=== PATIENT | male | born 1950 | race Hispanic/Latino ===

== ENCOUNTER → 2019-08-04 | Outpatient (CLI) | payer OTHER ==
[~2019-08-04] MED LIST: REGADENOSON 0.4 MG/5 ML PF SYG IVP SCH
== END | disposition home or self-care (01) ==
LOC: RAH 08:53
PROVIDERS: ATTEND Internal Medicine Cardiovascular Disease
DX: I25.89 Other forms of chronic ischemic heart disease (principal)
CPT/HCPCS: 78452; 93017; 96374; A9500 ×2; J2785

== ENCOUNTER 2022-07-16 15:12 | Inpatient (IN) | payer OTHER ==
[~2022-07-16] VITALS: Ht 165.1 cm; Wt 79.4 kg
[2022-07-16] MEDS ORDERED: DEXAMETHASONE SOD PHOSPHATE 4 MG/ML 1ML VIAL IM STA (16:20)
[2022-07-16] MEDS ORDERED: KETOROLAC 30MG VIAL (30MG/ML) IM STA (16:23)
[2022-07-16 16:53] LABS: BASOPHILS % (AUTO) 0.4 % (0.0-5.0); HEMATOCRIT 41.9 % (42-54); LYMPHOCYTES % (AUTO) 17.3 % (21.0-51.0); MEAN CORPUSCULAR HEMOGLOBIN 31.3 pg (27.0-33.0); MEAN CORPUSCULAR HGB CONC 34.1 g/dL (32.0-36.0); MEAN CORPUSCULAR VOLUME 91.7 fL (79-99); MONOCYTES % (AUTO) 9.4 % (3.0-13.0); NEUTROPHILS % (AUTO) 71.8 % (40.0-77.0); PLATELET COUNT (AUTO) 180 K/uL (130-400); RED BLOOD CELL COUNT(AUTO) 4.57 MIL/uL (4.50-6.20); RED CELL DISTRIBUTION WIDTH 12.9 % (11.0-15.5)
[2022-07-16 17:07] LABS: CREATININE 1.3 mg/dL (0.5-1.5); POTASSIUM 4.7 mmol/L (3.5-5.1)
[2022-07-16 17:12] LABS: TOTAL PROTEIN, SERUM 8.1 g/dL (6.0-8.3)
[2022-07-16] MEDS: LACTATED RINGERS 1000ML 1,000 ML IV SCH ×4 (18:15→21:30)
[2022-07-17] MEDS ORDERED: GADOTERATE MEGLUMINE 10 MMOL/20 ML VIAL IV ONE (12:04)
[2022-07-17] MEDS ORDERED: LIDOCAINE 5% TOPICAL PATCH TP SCH (18:30)
[2022-07-17] MEDS ORDERED: ONDANSETRON 4MG INJ IV PRN (18:30)
[2022-07-17] MEDS ORDERED: HYDROMORPHONE 0.5 MG SYG (0.5MG/0.5ML) IVP PRN (18:30)
[2022-07-17] MEDS ORDERED: HYDROMORPHONE 1 MG INJ IVP PRN (18:30)
[2022-07-17] MEDS ORDERED: ACETAMINOPHEN 325 MG TAB PO PRN ×2 (18:30)
[2022-07-17 18:55] LABS: BASOPHILS % (AUTO) 0.2 % (0.0-5.0); HEMATOCRIT 36.6 % (42-54); LYMPHOCYTES % (AUTO) 13.6 % (21.0-51.0); MEAN CORPUSCULAR HEMOGLOBIN 31.2 pg (27.0-33.0); MEAN CORPUSCULAR HGB CONC 33.9 g/dL (32.0-36.0); MEAN CORPUSCULAR VOLUME 92.2 fL (79-99); MONOCYTES % (AUTO) 7.5 % (3.0-13.0); NEUTROPHILS % (AUTO) 78.1 % (40.0-77.0); PLATELET COUNT (AUTO) 183 K/uL (130-400); RED BLOOD CELL COUNT(AUTO) 3.97 MIL/uL (4.50-6.20); RED CELL DISTRIBUTION WIDTH 12.3 % (11.0-15.5); WHITE BLOOD COUNT (AUTO) 8.7 K/uL (4.8-10.8)
[2022-07-17 19:13] LABS: INR 0.96 (0.85-1.15); PROTHROMBIN TIME 10.5 SEC (9.6-11.6)
[2022-07-17 19:15] LABS: PARTIAL THROMBOPLASTIN TIME 26.2 SEC (26.3-35.5)
[2022-07-17 19:17] LABS: ALBUMIN 3.2 g/dL (3.5-5.0); CREATININE 1.3 mg/dL (0.5-1.5); POTASSIUM 4.3 mmol/L (3.5-5.1); THYROID STIMULATING HORMONE 0.4 uIU/mL (0.36-3.74); TOTAL PROTEIN, SERUM 6.7 g/dL (6.0-8.3)
[2022-07-17 19:58] LABS: ERYTHROCYTE SEDIMENTATION RATE 13 MM/HR (0-20)
[2022-07-17 20:00] VITALS: BP 153/78
[2022-07-17] MEDS: DEXAMETHASONE SOD PHOSPHATE 4 MG/ML 1ML VIAL IV SCH (22:50)
[2022-07-17] MEDS: CYCLOBENZAPRINE HCL 10 MG TABLET PO SCH (22:51)
[2022-07-17] MEDS: GABAPENTIN 300 MG CAPSULE PO SCH (22:51)
[2022-07-17] MEDS: FAMOTIDINE 20MG VIAL IV SCH (22:52)
[2022-07-17] MEDS: INSULIN GLARGINE 100 UNITS/ML 10 ML VIAL SQ SCH (23:06)
[2022-07-17] MEDS: INSULIN HUMULIN R 100 UNIT/ML 3ML SQ SCH (23:07)
[2022-07-18] VITALS (7 sets, daily range): BP systolic 138–166; BP diastolic 16–69
[2022-07-18] MEDS: 0.9%NACL 1000ML 1,000 ML IV SCH ×3 (01:16→14:30)
[2022-07-18] MEDS ORDERED: CYAN100010 PO (01:27)
[2022-07-18] MEDS ORDERED: INSU100I21 SQ ×2 (01:27)
[2022-07-18] MEDS ORDERED: ROSU10TA28 PO (01:27)
[2022-07-18] MEDS ORDERED: ISOS30TA92 PO (01:27)
[2022-07-18] MEDS ORDERED: ACYC-138 PO (01:27)
[2022-07-18] MEDS ORDERED: IBUP-2070 PO (01:27)
[2022-07-18] MEDS ORDERED: DOCU100C33 PO (01:27)
[2022-07-18] MEDS ORDERED: LISI40TA9 PO (01:27)
[2022-07-18] MEDS ORDERED: SEMA2PEN SQ (01:27)
[2022-07-18] MEDS ORDERED: TAMS-1 PO (01:27)
[2022-07-18] MEDS ORDERED: CARV25TA PO (01:27)
[2022-07-18] MEDS ORDERED: EZET10TA48 PO (01:27)
[2022-07-18] MEDS ORDERED: PIOG45TA64 PO (01:27)
[2022-07-18 04:40] LABS: APPEARANCE,URINE CLEAR (CLEAR); BILIRUBIN,URINE NEGATIVE (NEGATIVE); COLOR,URINE LIGHT-YELLOW (YELLOW); GLUCOSE, URINE (UA) >=1000 mg/dL (NEGATIVE); KETONES,URINE NEGATIVE (NEGATIVE); LEUKOCYTE ESTERASE ,URINE NEGATIVE Leu/uL (NEGATIVE); NITRATE,URINE NEGATIVE (NEGATIVE); OCCULT BLOOD,URINE NEGATIVE (NEGATIVE); PROTEIN,URINE NEGATIVE (NEGATIVE); RBC,URINE 0-1 /HPF (0-1); UROBILINOGEN,URINE 0.2 mg/dL (0.2-1.0); WBC,URINE 0-1 /HPF (0-1)
[2022-07-18 04:46] LABS: SQUAMOUS EPITHELIAL CELL,UR None Seen /HPF (0-2)
[2022-07-18] MEDS: INSULIN HUMULIN R 100 UNIT/ML 3ML SQ SCH ×4 (05:46→20:13)
[2022-07-18] MEDS: FAMOTIDINE 20MG VIAL IV SCH ×2 (11:38→20:02)
[2022-07-18] MEDS: DEXAMETHASONE SOD PHOSPHATE 4 MG/ML 1ML VIAL IV SCH ×2 (11:38→20:02)
[2022-07-18] MEDS: GABAPENTIN 300 MG CAPSULE PO SCH ×2 (11:39→19:56)
[2022-07-18] MEDS: CYCLOBENZAPRINE HCL 10 MG TABLET PO SCH ×3 (11:39→20:02)
[2022-07-18] MEDS: LIDOCAINE 5% TOPICAL PATCH TP SCH (14:21)
[2022-07-18] MEDS: INSULIN GLARGINE 100 UNITS/ML 10 ML VIAL SQ SCH (20:13)
[2022-07-19 00:15] VITALS: BP 158/73
[2022-07-19 04:00] VITALS: BP 150/66
[2022-07-19] MEDS: INSULIN HUMULIN R 100 UNIT/ML 3ML SQ SCH ×4 (07:17→20:39)
[2022-07-19 08:08] VITALS: BP 160/75
[2022-07-19] MEDS: TAMSULOSIN HCL 0.4 MG CAP.ER.24H PO SCH (08:14)
[2022-07-19] MEDS: ATORVASTATIN 20 MG TABLET PO SCH (08:14)
[2022-07-19] MEDS: DOCUSATE SODIUM 100 MG CAP PO SCH (08:14)
[2022-07-19] MEDS: CYCLOBENZAPRINE HCL 10 MG TABLET PO SCH ×3 (08:15→20:32)
[2022-07-19] MEDS: GABAPENTIN 300 MG CAPSULE PO SCH ×2 (08:15→20:31)
[2022-07-19] MEDS: LISINOPRIL 40 MG TABLET PO SCH (08:15)
[2022-07-19] MEDS: CARVEDILOL 25 MG TABLET PO SCH ×2 (08:15→20:31)
[2022-07-19] MEDS: FAMOTIDINE 20MG VIAL IV SCH ×2 (08:16→20:32)
[2022-07-19] MEDS: DEXAMETHASONE SOD PHOSPHATE 4 MG/ML 1ML VIAL IV SCH ×2 (08:16→20:32)
[2022-07-19] MEDS: 0.9%NACL 1000ML 1,000 ML IV SCH ×3 (08:23→20:41)
[2022-07-19] MEDS: LIDOCAINE 5% TOPICAL PATCH TP SCH (08:24)
[2022-07-19 11:00] VITALS: BP 122/64
[2022-07-19 15:58] VITALS: BP 142/52
[2022-07-19] MEDS: ISOSORBIDE MONO 30MG SR TAB PO SCH (20:32)
[2022-07-19] MEDS: INSULIN GLARGINE 100 UNITS/ML 10 ML VIAL SQ SCH (20:40)
[2022-07-19 20:50] VITALS: BP 130/86
[2022-07-20 00:11] VITALS: BP 120/52
[2022-07-20 04:33] VITALS: BP 131/58
[2022-07-20 05:24] LABS: BASOPHILS % (AUTO) 0.1 % (0.0-5.0); HEMATOCRIT 36.2 % (42-54); LYMPHOCYTES % (AUTO) 9.5 % (21.0-51.0); MEAN CORPUSCULAR HEMOGLOBIN 30.9 pg (27.0-33.0); NEUTROPHILS % (AUTO) 85.8 % (40.0-77.0); PLATELET COUNT (AUTO) 184 K/uL (130-400); RED BLOOD CELL COUNT(AUTO) 3.98 MIL/uL (4.50-6.20); RED CELL DISTRIBUTION WIDTH 12.1 % (11.0-15.5); WHITE BLOOD COUNT (AUTO) 10.4 K/uL (4.8-10.8)
[2022-07-20 05:39] LABS: CREATININE 1.2 mg/dL (0.5-1.5); POTASSIUM 3.8 mmol/L (3.5-5.1)
[2022-07-20] MEDS: INSULIN HUMULIN R 100 UNIT/ML 3ML SQ SCH ×4 (06:27→21:35)
[2022-07-20 08:00] VITALS: BP 129/61
[2022-07-20] MEDS: DEXAMETHASONE SOD PHOSPHATE 4 MG/ML 1ML VIAL IV SCH ×2 (09:15→21:30)
[2022-07-20] MEDS: FAMOTIDINE 20MG VIAL IV SCH ×2 (09:15→21:30)
[2022-07-20] MEDS: DOCUSATE SODIUM 100 MG CAP PO SCH (09:15)
[2022-07-20] MEDS: CYCLOBENZAPRINE HCL 10 MG TABLET PO SCH ×3 (09:16→21:32)
[2022-07-20] MEDS: GABAPENTIN 300 MG CAPSULE PO SCH ×2 (09:16→21:31)
[2022-07-20] MEDS: LISINOPRIL 40 MG TABLET PO SCH (09:16)
[2022-07-20] MEDS: TAMSULOSIN HCL 0.4 MG CAP.ER.24H PO SCH (09:16)
[2022-07-20] MEDS: LIDOCAINE 5% TOPICAL PATCH TP SCH (09:16)
[2022-07-20] MEDS: CARVEDILOL 25 MG TABLET PO SCH ×2 (09:16→21:31)
[2022-07-20] MEDS: ATORVASTATIN 20 MG TABLET PO SCH (09:22)
[2022-07-20 12:00] VITALS: BP 125/53
[2022-07-20] MEDS: LACTULOSE 20 GM/30 ML UDCUP PO SCH ×2 (14:24→21:36)
[2022-07-20 16:00] VITALS: BP 162/67
[2022-07-20] MEDS: 0.9%NACL 1000ML 1,000 ML IV SCH (16:30)
[2022-07-20 20:00] VITALS: BP 143/81
[2022-07-20] MEDS: ISOSORBIDE MONO 30MG SR TAB PO SCH (21:32)
[2022-07-20] MEDS: INSULIN GLARGINE 100 UNITS/ML 10 ML VIAL SQ SCH (21:36)
[2022-07-21] VITALS: BP 144/68
[2022-07-21 04:00] VITALS: BP 144/63
[2022-07-21 05:16] LABS: BASOPHILS % (AUTO) 0.1 % (0.0-5.0); HEMATOCRIT 36.4 % (42-54); MEAN CORPUSCULAR HEMOGLOBIN 30.8 pg (27.0-33.0); MEAN CORPUSCULAR HGB CONC 33.5 g/dL (32.0-36.0); MEAN CORPUSCULAR VOLUME 91.9 fL (79-99); MONOCYTES % (AUTO) 3.6 % (3.0-13.0); NEUTROPHILS % (AUTO) 87.7 % (40.0-77.0); PLATELET COUNT (AUTO) 205 K/uL (130-400); RED BLOOD CELL COUNT(AUTO) 3.96 MIL/uL (4.50-6.20); RED CELL DISTRIBUTION WIDTH 12.2 % (11.0-15.5); WHITE BLOOD COUNT (AUTO) 10.3 K/uL (4.8-10.8)
[2022-07-21 05:38] LABS: ALBUMIN 2.8 g/dL (3.5-5.0); CREATININE 1.1 mg/dL (0.5-1.5); MAGNESIUM 1.9 mg/dL (1.80-2.40); POTASSIUM 3.8 mmol/L (3.5-5.1); TOTAL PROTEIN, SERUM 6.2 g/dL (6.0-8.3)
[2022-07-21] MEDS: INSULIN HUMULIN R 100 UNIT/ML 3ML SQ SCH ×4 (06:20→20:50)
[2022-07-21] MEDS: LACTULOSE 20 GM/30 ML UDCUP PO SCH (06:20)
[2022-07-21 07:01] LABS: INR 0.96 (0.85-1.15); PROTHROMBIN TIME 10.5 SEC (9.6-11.6)
[2022-07-21 07:30] VITALS: BP 119/56
[2022-07-21] MEDS: CEFAZOLIN SODIUM 2 GM VIAL IVP SCH (08:30)
[2022-07-21] MEDS: CYCLOBENZAPRINE HCL 10 MG TABLET PO SCH ×3 (09:21→20:35)
[2022-07-21] MEDS: GABAPENTIN 300 MG CAPSULE PO SCH ×2 (09:22→20:34)
[2022-07-21] MEDS: TAMSULOSIN HCL 0.4 MG CAP.ER.24H PO SCH (09:22)
[2022-07-21] MEDS: DOCUSATE SODIUM 100 MG CAP PO SCH (09:22)
[2022-07-21] MEDS: ATORVASTATIN 20 MG TABLET PO SCH (09:23)
[2022-07-21] MEDS: DEXAMETHASONE SOD PHOSPHATE 4 MG/ML 1ML VIAL IV SCH ×2 (09:23→20:34)
[2022-07-21] MEDS: FAMOTIDINE 20MG VIAL IV SCH ×2 (09:23→20:34)
[2022-07-21] MEDS: LIDOCAINE 5% TOPICAL PATCH TP SCH (09:24)
[2022-07-21 11:00] VITALS: BP 171/64
[2022-07-21] MEDS: LISINOPRIL 40 MG TABLET PO SCH (11:25)
[2022-07-21] MEDS: CARVEDILOL 25 MG TABLET PO SCH ×2 (11:25→20:35)
[2022-07-21] MEDS: 0.9%NACL 1000ML 1,000 ML IV SCH ×3 (12:30→22:15)
[2022-07-21 16:00] VITALS: BP 109/61
[2022-07-21 20:00] VITALS: BP 115/54
[2022-07-21] MEDS: ISOSORBIDE MONO 30MG SR TAB PO SCH (20:36)
[2022-07-21] MEDS: INSULIN GLARGINE 100 UNITS/ML 10 ML VIAL SQ SCH (20:50)
[2022-07-22] VITALS (27 sets, daily range): BP systolic 92–201; BP diastolic 57–84
[2022-07-22 04:52] LABS: HEMATOCRIT 35.4 % (42-54); MEAN CORPUSCULAR HGB CONC 34.5 g/dL (32.0-36.0); MEAN CORPUSCULAR VOLUME 90.1 fL (79-99); RED BLOOD CELL COUNT(AUTO) 3.93 MIL/uL (4.50-6.20); WHITE BLOOD COUNT (AUTO) 10.9 K/uL (4.8-10.8)
[2022-07-22 05:12] LABS: ALBUMIN 2.7 g/dL (3.5-5.0); POTASSIUM 3.6 mmol/L (3.5-5.1); TOTAL PROTEIN, SERUM 5.9 g/dL (6.0-8.3)
[2022-07-22] MEDS: 0.9%NACL 1000ML 1,000 ML IV SCH ×2 (06:16→18:30)
[2022-07-22] MEDS: INSULIN HUMULIN R 100 UNIT/ML 3ML SQ SCH ×4 (06:57→20:39)
[2022-07-22] MEDS: INSULIN GLARGINE 100 UNITS/ML 10 ML VIAL SQ SCH ×2 (06:57→20:35)
[2022-07-22] MEDS ORDERED: CEFAZOLIN SODIUM 1 GM VIAL ONE ×3 (07:29→19:25)
[2022-07-22] MEDS ORDERED: THROMBIN-JMI 20000 UNIT KIT TP ONE (07:30)
[2022-07-22] MEDS ORDERED: BUPIVACAINE/EPI/PF 0.5% 30ML VIAL IJ ONE (07:30)
[2022-07-22] MEDS ORDERED: MORPHINE PF 100MG/10ML AMP IV ONE (07:30)
[2022-07-22] MEDS: CEFAZOLIN SODIUM 2 GM VIAL IVP SCH ×4 (08:30→22:30)
[2022-07-22] MEDS: ATORVASTATIN 20 MG TABLET PO SCH (09:00)
[2022-07-22] MEDS: CARVEDILOL 25 MG TABLET PO SCH ×2 (09:00→20:01)
[2022-07-22] MEDS: CYCLOBENZAPRINE HCL 10 MG TABLET PO SCH ×3 (09:00→20:02)
[2022-07-22] MEDS: FAMOTIDINE 20MG VIAL IV SCH ×2 (09:00→20:02)
[2022-07-22] MEDS: LISINOPRIL 40 MG TABLET PO SCH (09:00)
[2022-07-22] MEDS: TAMSULOSIN HCL 0.4 MG CAP.ER.24H PO SCH (09:00)
[2022-07-22] MEDS: LIDOCAINE 5% TOPICAL PATCH TP SCH (09:00)
[2022-07-22] MEDS: DOCUSATE SODIUM 100 MG CAP PO SCH (09:00)
[2022-07-22] MEDS: DEXAMETHASONE SOD PHOSPHATE 4 MG/ML 1ML VIAL IV SCH (09:00)
[2022-07-22] MEDS: GABAPENTIN 300 MG CAPSULE PO SCH ×2 (09:00→20:02)
[2022-07-22] MEDS ORDERED: DEXMEDETOMIDINE HCL 200 MCG/2 ML VIAL IV ONE (09:01)
[2022-07-22] MEDS ORDERED: PROPOFOL 10 MG/ML 20ML VIAL IV ONE ×2 (10:55→14:01)
[2022-07-22] MEDS ORDERED: MIDAZOLAM HCL 1 MG/ML 2ML VIAL ONE (10:55)
[2022-07-22] MEDS ORDERED: ONDANSETRON 4MG INJ ONE (10:55)
[2022-07-22] MEDS ORDERED: ROCURONIUM 10MG/1ML SYR 10 MG/ML ML ONE ×2 (10:56→11:55)
[2022-07-22] MEDS ORDERED: FENTANYL CITRATE PF 50 MCG/1 ML 5ML AMP IV ONE (10:56)
[2022-07-22] MEDS ORDERED: PHENYLEPHRINE HCL 10 MG/ML 1ML VIAL IV ONE (12:04)
[2022-07-22] MEDS ORDERED: GLYCOPYRROLATE 1 MG/5 ML SYRINGE ONE (13:55)
[2022-07-22] MEDS ORDERED: NEOSTIGMINE 5MG/5ML SYR IV ONE (13:55)
[2022-07-22] MEDS ORDERED: FENTANYL CITRATE PF 50 MCG/1 ML 2ML VIAL ONE (13:59)
[2022-07-22] MEDS ORDERED: KETOROLAC 30MG VIAL (30MG/ML) ONE (13:59)
[2022-07-22] MEDS ORDERED: HYDRALAZINE 20MG/ML VIAL ONE (14:19)
[2022-07-22] MEDS ORDERED: HYDROCODONE/ACETAMINOPHEN 5/325 MG TAB PO PRN (14:30)
[2022-07-22] MEDS ORDERED: 0.9%NACL 10ML VIAL IVP PRN (14:30)
[2022-07-22] MEDS ORDERED: IBUPROFEN 600 MG TABLET PO PRN (14:30)
[2022-07-22] MEDS ORDERED: MORPHINE 2 MG SYG IVP PRN (14:30)
[2022-07-22] MEDS ORDERED: PROMETHAZINE HCL 25 MG/ML 1ML AMPULE IM PRN (14:30)
[2022-07-22] MEDS ORDERED: LACTATED RINGERS 1000ML 1,000 ML IV SCH (14:30)
[2022-07-22] MEDS ORDERED: ACYCLOVIR 800 MG TABLET PO SCH (15:00)
[2022-07-22] MEDS: DEXAMETHASONE SOD PHOSPHATE 4 MG/ML 1ML VIAL IVP SCH ×2 (17:04→23:29)
[2022-07-22] MEDS: ISOSORBIDE MONO 30MG SR TAB PO SCH (20:01)
[2022-07-22] MEDS ORDERED: INSULIN GLARGINE 100 UNITS/ML 10 ML VIAL SQ SCH (21:00)
[2022-07-23] VITALS: BP 158/64
[2022-07-23] MEDS: 0.9%NACL 1000ML 1,000 ML IV SCH (03:47)
[2022-07-23 04:00] VITALS: BP 157/73
[2022-07-23] MEDS: DEXAMETHASONE SOD PHOSPHATE 4 MG/ML 1ML VIAL IVP SCH ×2 (05:06→09:41)
[2022-07-23 05:16] LABS: BASOPHILS % (AUTO) 0.1 % (0.0-5.0); HEMATOCRIT 37.6 % (42-54); LYMPHOCYTES % (AUTO) 5.8 % (21.0-51.0); MEAN CORPUSCULAR HEMOGLOBIN 30.5 pg (27.0-33.0); MEAN CORPUSCULAR HGB CONC 33.2 g/dL (32.0-36.0); MEAN CORPUSCULAR VOLUME 91.7 fL (79-99); MONOCYTES % (AUTO) 4.6 % (3.0-13.0); NEUTROPHILS % (AUTO) 88.6 % (40.0-77.0); PLATELET COUNT (AUTO) 199 K/uL (130-400); RED CELL DISTRIBUTION WIDTH 12.5 % (11.0-15.5); WHITE BLOOD COUNT (AUTO) 14.2 K/uL (4.8-10.8)
[2022-07-23 05:31] LABS: ALBUMIN 2.4 g/dL (3.5-5.0); CREATININE 0.9 mg/dL (0.5-1.5); POTASSIUM 3.6 mmol/L (3.5-5.1); TOTAL PROTEIN, SERUM 5.6 g/dL (6.0-8.3)
[2022-07-23] MEDS: INSULIN GLARGINE 100 UNITS/ML 10 ML VIAL SQ SCH (07:03)
[2022-07-23] MEDS: INSULIN HUMULIN R 100 UNIT/ML 3ML SQ SCH ×2 (07:03→11:49)
[2022-07-23 07:59] VITALS: BP 145/68
[2022-07-23] MEDS ORDERED: INSULIN GLARGINE 100 UNITS/ML 10 ML VIAL SQ SCH (08:00)
[2022-07-23] MEDS: CEFAZOLIN SODIUM 2 GM VIAL IVP SCH (08:17)
[2022-07-23] MEDS ORDERED: PIOGLITAZONE 45MG TAB PO SCH (09:00)
[2022-07-23] MEDS ORDERED: EZETIMIBE 10 MG TAB PO SCH (09:00)
[2022-07-23] MEDS ORDERED: CYANOCOBALAMIN (VITAMIN B-12) 1,000 MCG TABLET PO SCH (09:00)
[2022-07-23] MEDS: FAMOTIDINE 20MG VIAL IV SCH (09:42)
[2022-07-23] MEDS: CARVEDILOL 25 MG TABLET PO SCH (09:43)
[2022-07-23] MEDS: DOCUSATE SODIUM 100 MG CAP PO SCH (09:43)
[2022-07-23] MEDS: GABAPENTIN 300 MG CAPSULE PO SCH (09:44)
[2022-07-23] MEDS: TAMSULOSIN HCL 0.4 MG CAP.ER.24H PO SCH (09:44)
[2022-07-23] MEDS: CYCLOBENZAPRINE HCL 10 MG TABLET PO SCH (09:44)
[2022-07-23] MEDS: LISINOPRIL 40 MG TABLET PO SCH (09:44)
[2022-07-23] MEDS: LIDOCAINE 5% TOPICAL PATCH TP SCH (09:45)
[2022-07-23] MEDS: ATORVASTATIN 20 MG TABLET PO SCH (09:55)
[2022-07-23 11:14] VITALS: BP 126/97
[2022-07-29] MEDS ORDERED: SEMAGLUTIDE 2 MG SQ SCH (09:00)
== END 2022-07-23 13:30 | disposition home or self-care (01) | DRG 517 ==
LOC: EDH 15:12 → OBSVTOIN 07-17 17:46 → EDHIP 07-17 17:46 → 3DH 07-17 18:47 → 4DH 07-18 01:00
PROVIDERS: ADMIT Hospitalist; ATTEND Hospitalist
PROC: 01NB0ZZ Release Lumbar Nerve, Open Approach (ICD-10-PCS; principal; 2022-07-22 11:25)
PROC: 01NR0ZZ Release Sacral Nerve, Open Approach (ICD-10-PCS; 2022-07-22 11:25)
PROC: 3E0R3BZ Introduction of Anesthetic Agent into Spinal Canal, Percutaneous Approach (ICD-10-PCS; 2022-07-22 11:25)
DX: M48.07 Spinal stenosis, lumbosacral region (principal); M47.816 Spondylosis without myelopathy or radiculopathy, lumbar region; E11.65 Type 2 diabetes mellitus with hyperglycemia; Z20.822 Contact with and (suspected) exposure to COVID-19; E78.5 Hyperlipidemia, unspecified; I10 Essential (primary) hypertension; I25.10 Atherosclerotic heart disease of native coronary artery without angina pectoris; K59.00 Constipation, unspecified; Z87.891 Personal history of nicotine dependence; Z79.4 Long term (current) use of insulin
CPT/HCPCS: 36415; 70551; 71045; 72020; 72148; 80048; 80053; 81001; 82550; 82948; 83735; 84443; 85025; 85027; 85610; 85651; 85730; 87635; 93005; 93306; 93356; 93926; 97039; A4344; C9803; G0378; J0360; J0690; J1100; J1815; J1885; J2250; J2274; J2370; J2405; J2704; J2710; J3010; J3490; J7030; J7120